=== PATIENT | female | born 1965 | race Caucasian/White ===

== ENCOUNTER 2020-03-10 14:36 | Emergency (ER) | payer SELFPAY ==
[~2020-03-10] VITALS: Ht 162.6 cm; Wt 81.6 kg
[2020-03-10 15:00] VITALS: BP 165/90
[2020-03-10] MEDS ORDERED: cefTRIAXone IM 1 GM VIAL IM ONE (15:30)
[2020-03-10] MEDS ORDERED: MORPHINE SULFATE 10 MG/ML VIAL. IM ONE (15:30)
[2020-03-10] MEDS ORDERED: LIDOCAINE 1% PF 2 ML VIAL. INJ ONE (15:30)
--- NOTE | 2020-03-10 15:44 | PHYS DOC ---
Past Medical History Past Medical History: No Pertinent History Past Surgical History: No Surgical History Smoking Status: Current Every Day Smoker Alcohol Use: None General Adult EDM: Chief Complaint: SKIN PROBLEM HPI: HPI: Patient is a 55 year old female who presents to the ED today complaining of an abscess to the left thigh/buttock region that began 1-1/2 weeks ago. Patient states she has been trying to use hot showers with no relief. Review of Systems: Review of Systems: Constitutional: Denies fever or chills. [] Musculoskeletal: Denies back pain or joint pain. [] Integument: Reports abscess to the left thigh/buttock region Neurologic: Denies headache, focal weakness or sensory changes. [] Psychiatric: Denies depression or anxiety. [] Heart Score: Risk Factors: Risk Factors: DM, Current or recent (<one month) smoker, HTN, HLP, family history of CAD, obesity. Risk Scores: Score 0 - 3: 2.5% MACE over next 6 weeks - Discharge Home Score 4 - 6: 20.3% MACE over next 6 weeks - Admit for Clinical Observation Score 7 - 10: 72.7% MACE over next 6 weeks - Early Invasive Strategies Current Medications: Current Medications Medications (Trade) Dose Ordered Sig/Isabella Start Time Stop Time Status Last Admin Dose Admin Ceftriaxone Sodium (Rocephin Im) 1 gm 1X ONCE 03/10/20 15:30 03/10/20 15:31 UNV Lidocaine HCl (Xylocaine-Mpf 1% 2ml Vial) 2 ml 1X ONCE 03/10/20 15:30 03/10/20 15:31 UNV Morphine Sulfate (Morphine Sulfate) 5 mg 1X ONCE 03/10/20 15:30 03/10/20 15:31 UNV Allergies: Allergies: Allergies Coded Allergies Type Severity Reaction Last Updated Verified No Known Drug Allergies 03/10/20 No Physical Exam: PE: Constitutional: Well developed, well nourished, no acute distress, non-toxic appearance. [] Skin: Warm, dry, left buttock with an area of cellulitis approximately 8 x 5 cm. The area has a firm center, no fluctuance, warmth to the area. Back: No tenderness, no CVA tenderness. [] Extremities: No tenderness, no cyanosis, no clubbing, ROM intact, no edema. [] Neurologic: Alert and oriented X 3, normal motor function, normal sensory function, no focal deficits noted. [] Psychologic: Affect normal, judgement normal, mood normal. [] Current Patient Data: Vital Signs: Vital Signs Date Time Temp Pulse Resp B/P (MAP) Pulse Ox O2 Delivery O2 Flow Rate FiO2 03/10/20 15:00 97.6 122 16 165/90 (115) 96 Room Air 97.6 EKG: EKG: [] Radiology/Procedures: Radiology/Procedures: [] Course & Med Decision Making: Course & Med Decision Making Pertinent Labs and Imaging studies reviewed. (See chart for details) This is a 55-year-old female patient with an abscess with cellulitis to the left buttock. There is nothing to drain to the region. Recommended warm compresses to the area. Was given Rocephin IM. Tetanus was updated. Discharged on Bactrim and cephalexin. Follow-up with PCP in 1 to 2 weeks. Dragon Disclaimer: Dragon Disclaimer: This electronic medical record was generated, in whole or in part, using a voice recognition dictation system. Departure Departure Impression: Primary Impression: Abscess and cellulitis of gluteal region Disposition: 01 HOME SELF CARE/HOMELESS Condition: STABLE Referrals: NO PCP (PCP) CARTER BURRELL MD follow up in one week Patient Instructions: Abscess, Cellulitis Additional Instructions: You have an abscess with cellulitis on the left buttock. Apply warm compresses/take warm baths twice a day. Take the prescribed antibiotics as ordered. Follow-up with your doctor in 1 to 2 weeks Scripts Hydrocodone/Apap 5-325 (NORCO 5-325 TABLET) 1 Each Tablet 1 TAB PO Q6HRS, #20 TAB Prov: KELECHI HADDAD APRN 03/10/20 Sulfamethoxazole/Trimethoprim (BACTRIM 400-80 MG TABLET) 1 Each Tablet 1 TAB PO BID for 10 Days, #20 TAB 0 Refills Prov: KELECHI HADDAD APRN 03/10/20 Cephalexin (CEPHALEXIN) 500 Mg Tablet 1 TAB PO TID, #30 TAB Prov: KELECHI HADDAD APRN 03/10/20 KELECHI HADDAD APRN Mar 10, 2020 15:44
[2020-03-10] MEDS ORDERED: DIPH,PERTUSS(ACELL),TET VAC/PF 0.5 ML SYRINGE. VAX IM ONE (15:45)
[2020-03-10] MEDS ORDERED: SULF1TAB23 PO (15:50)
[2020-03-10] MEDS ORDERED: HYDR-3164 PO (15:50)
[2020-03-10] MEDS ORDERED: CEPH500T PO (15:50)
== END 2020-03-10 16:17 | disposition home or self-care (01) ==
LOC: ER 14:36
DX: L02.416 Cutaneous abscess of left lower limb (principal); L03.317 Cellulitis of buttock; F17.200 Nicotine dependence, unspecified, uncomplicated
CPT/HCPCS: 90471; 90715; 96372; 99284; J0696; J2270; J3490

== ENCOUNTER 2020-09-25 10:13 | Emergency (ER) | payer OTHER ==
[~2020-09-25] VITALS: Ht 162.6 cm; Wt 75.0 kg
[~2020-09-25 10:13] MED LIST: CEPH500T PO; HYDR-3164 PO; SULF1TAB23 PO
--- NOTE | 2020-09-25 12:14 | RAD ---
Exam Date: 09/25/2020 11:36 AM XR HAND_LEFT 3 VIEWS Indication: Reason: 3rd and 4th finger pain after crushed by mixer at work / Spl. Instructions: / Hi story: . FINDINGS/ IMPRESSION: No acute fracture or dislocation. Mild degenerative change are noted. Alignment is maintained. The soft tissues are within normal limits. Electronically signed by: Carrington Shepherd MD (09/25/2020 12:12 PM) [facility]
--- NOTE | 2020-09-25 12:34 | ED.ADGEN ---
Past Medical History Past Medical History: No Pertinent History Past Surgical History: No Surgical History Smoking Status: Current Every Day Smoker Alcohol Use: None General Adult EDM: Chief Complaint: FINGER INJURY HPI: HPI: Patient is a 55 year old female who presents to the emergency department with complaints of left third and fourth digit pain after her fingers were smashed between a mixer and the sink at work. Patient reports abrasions to her third and fourth digits, she states her last tetanus was less than 5 years ago. She denies any decreased range of motion, numbness, tingling, or loss of sensation in the affected fingers. Patient is dominantly right-handed. She reports increased pain with range of motion. She currently rates the pain a 7 out of 10 on the pain scale, she denies any alleviating factors. Review of Systems: Review of Systems: Complete ROS is negative unless otherwise noted in HPI. Allergies: Allergies: Allergies Coded Allergies Type Severity Reaction Last Updated Verified No Known Drug Allergies 03/10/20 No Physical Exam: PE: See Above Constitutional: Well developed, well nourished, no acute distress, non-toxic appearance. [] HENT: Normocephalic, atraumatic, bilateral external ears normal, nose normal. [] Eyes: PERRLA, EOMI, conjunctiva normal, no discharge. [] Neck: Normal range of motion, no stridor. [] Cardiovascular:Heart rate regular rhythm Lungs & Thorax: Respirations even and unlabored, no retractions, no respiratory distress Skin: Warm, dry, no erythema, no rash; superficial abrasions to the dorsal aspect of the left third and fourth digits, distal to the PIPs, no active bleeding. [] Extremities: Left hand: Tenderness to palpation of the third and fourth digits distal to the PIPs without crepitus or obvious deformity, sensation intact, no cyanosis, ROM intact, no edema. [] Neurologic: Alert and oriented X 3, normal motor, normal sensory no focal deficits noted. [] Psychologic: Affect normal, judgement normal, mood normal. [] Current Patient Data: Vital Signs: Vital Signs Date Time Temp Pulse Resp B/P (MAP) Pulse Ox O2 Delivery O2 Flow Rate FiO2 09/25/20 11:14 98.3 88 20 178/96 (115) 94 Room Air 98.3 EKG: EKG: [] Heart Score: C/O Chest Pain: No Radiology/Procedures: Radiology/Procedures: PROCEDURE: HAND LEFT 3V Exam Date: 09/25/2020 11:36 AM XR HAND_LEFT 3 VIEWS Indication: Reason: 3rd and 4th finger pain after crushed by mixer at work / Spl. Instructions: / History: . FINDINGS/ IMPRESSION: No acute fracture or dislocation. Mild degenerative change are noted. Alignment is maintained. The soft tissues are within normal limits. Electronically signed by: Carrington Shepherd MD (09/25/2020 12:12 PM) [facility] [] Course & Med Decision Making: Course & Med Decision Making Pertinent Labs and Imaging studies reviewed. (See chart for details) [] Dragon Disclaimer: Dragon Disclaimer: This electronic medical record was generated, in whole or in part, using a voice recognition dictation system. Departure Departure Impression: Primary Impression: Contusion of left middle finger without damage to nail, initial encounter Additional Impressions: Contusion of left ring finger without damage to nail, initial encounter Abrasions of multiple sites Disposition: 01 HOME / SELF CARE / HOMELESS Condition: STABLE Referrals: NO PCP (PCP) Patient Instructions: Abrasions, Finger Sprain, [id number] Additional Instructions: You may take Tylenol or ibuprofen as needed for pain. Recommend application of ice, elevation, and rest of affected extremity. Cleanse the abrasions twice a day with soap and water and apply bandages as needed. Follow-up with your primary care doctor or work comp doctor next week for reevaluation, return to the ER if your symptoms worsen. Problem Qualifiers BEATRIZ FLYNN APRN Sep 25, 2020 12:34
[2020-09-25 13:04] VITALS: BP 175/93
== END 2020-09-25 13:04 | disposition home or self-care (01) ==
LOC: ER 10:13
DX: S60.032A Contusion of left middle finger without damage to nail, initial encounter (principal); S60.042A Contusion of left ring finger without damage to nail, initial encounter; F17.200 Nicotine dependence, unspecified, uncomplicated; W23.0XXA Caught, crushed, jammed, or pinched between moving objects, initial encounter; Y93.89 Activity, other specified; Y92.89 Other specified places as the place of occurrence of the external cause; Y99.8 Other external cause status
CPT/HCPCS: 73130; 99283